=== PATIENT | male | born 1950 | race Caucasian/White ===

== ENCOUNTER 2017-10-12 20:23 | Emergency (ER) | payer MEDICARE | END 2017-10-12 21:15 | disposition home or self-care (01) | LOC: ER 20:23 | DX: M54.5 Low back pain (principal); I10 Essential (primary) hypertension | CPT/HCPCS: 99283 ==

== ENCOUNTER 2018-11-27 09:03 | Emergency (ER) | payer MEDICARE ==
[~2018-11-27] VITALS: Ht 182.9 cm; Wt 87.1 kg
[~2018-11-27 09:03] MED LIST: OXYC5CAP PO
[2018-11-27] MEDS ORDERED: LIDOCAINE 1% PF 2 ML VIAL. INJ ONE (09:15)
[2018-11-27 09:16] VITALS: BP 141/81
--- NOTE | 2018-11-27 09:17 | PHYS DOC ---
Past Medical History Past Medical History: Hypertension Past Surgical History: Other Additional Past Surgical Histo: R AND L KNEE, R AND L ROTATOR, L CARPAL TUNNEL Alcohol Use: Occasionally Drug Use: None Adult General Chief Complaint Chief Complaint: LACERATION/AVULSION HPI HPI Patient is a 68 year old male who presents with was using a pocket knife to open a bag and ended up cutting his left dorsum whole hand in 2 [address] places at approximately 905 this morning. Bleeding is not controlled. Patient rates his stinging pain a 6 out of 10. Review of Systems Review of Systems Constitutional: Denies fever or chills [] Eyes: Denies change in visual acuity, redness, or eye pain [] HENT: Denies nasal congestion or sore throat [] Respiratory: Denies cough or shortness of breath [] Cardiovascular: No additional information not addressed in HPI [] GI: Denies abdominal pain, nausea, vomiting, bloody stools or diarrhea [] : Denies dysuria or hematuria [] Musculoskeletal: Denies back pain or joint pain [] Integument: Denies rash or skin lesions [] Neurologic: Denies headache, focal weakness or sensory changes [] Endocrine: Denies polyuria or polydipsia [] All other systems were reviewed and found to be within normal limits, except as documented in this note. Current Medications Current Medications Current Medications Medications (Trade) Dose Ordered Sig/Yanira Start Time Stop Time Status Last Admin Dose Admin Diphtheria/ Tetanus/Acell Pertussis (Boostrix) 0.5 ml ONCE ONCE 11/27/18 09:30 11/27/18 09:31 DC Lidocaine HCl (Lidocaine 1% 20ml Vial) 20 ml STK-MED ONCE 11/27/18 09:39 11/27/18 09:40 DC Lidocaine HCl (Xylocaine-Mpf 1% 2ml Vial) 2 ml 1X ONCE 11/27/18 09:15 11/27/18 09:16 Cancel Allergies Allergies Allergies Coded Allergies Type Severity Reaction Last Updated Verified No Known Drug Allergies 10/12/17 No Physical Exam Physical Exam Constitutional: Well developed, well nourished, no acute distress, non-toxic appearance. [] HENT: Normocephalic, atraumatic, bilateral external ears normal, oropharynx moist, no oral exudates, nose normal. [] Eyes: PERRLA, EOMI, conjunctiva normal, no discharge. [] Neck: Normal range of motion, no tenderness, supple, no stridor. [] Cardiovascular:Heart rate regular rhythm, no murmur [] Lungs & Thorax: Bilateral breath sounds clear to auscultation [] Abdomen: Bowel sounds normal, soft, no tenderness, no masses, no pulsatile masses. [] Skin: Warm, dry, no erythema, no rash. [] Back: No tenderness, no CVA tenderness. [] Extremities: No tenderness, no cyanosis, no clubbing, ROM intact, no edema. [] Neurologic: Alert and oriented X 3, normal motor function, normal sensory function, no focal deficits noted. [] Psychologic: Affect normal, judgement normal, mood normal. [] Current Patient Data Vital Signs Vital Signs Date Time Temp Pulse Resp B/P (MAP) Pulse Ox O2 Delivery O2 Flow Rate FiO2 11/27/18 09:16 97.8 94 20 141/81 (101) 96 Room Air 97.8 EKG EKG [] Radiology/Procedures Radiology/Procedures [] Course & Med Decision Making Course & Med Decision Making Patient is a 68 year old male who presents with was using a pocket knife to open a bag and ended up cutting his left dorsum whole hand in 2 separate places at approximately 905 this morning. Bleeding is not controlled. Patient rates his stinging pain a 6 out of 10. Patient has a left dorsal 3 cm laceration that has continuous non arterial bleeding that is just distal to the Perlicue and a second 2 cm laceration to the mid left dorsal hand with no bleeding. Patient can make a fist and wiggle all fingers without complication. Radial pulse strong and palpable. Cap refill less than 3 seconds. Patient denies any numbness or tingling in the hand or the arm. Wound is immediately packed and wrapped tightly to control bleeding upon arrival. Patient is given a Boostrix tetanus shot. Bleeding has stopped after pressure placed in ED for 20 minutes. No underlying muscle or tendons seen with exploration or damage. Less than 0.5mm of depth. Does not appear to be a stab type wound after examing the wound and irrigation. Patient to return in 7-10 days for suture removal. Laceration Repair by me: Anesthesia: 1% lidocaine locally Location: Left dorsal hand Tendon/Joint/Nerves: No injury Foreign body: None detected after copious irrigation with saline and chlorhexidine and exploration Technique: 6 Simple Interrupted Sutures and 3 simple sutures. Complexity: No subcutaneous sutures/mucosal repair/edge excision Post Closure Length: Left distal Perlicue laceration 3.5 cm and Left mid dorsal 2cm Patient's bleeding was easily controlled in the department and there is no indication of anemia. No evidence of compartment syndrome, neurologic injury, vascular injury, open joint, tendon laceration, or foreign body. Patient is appropriate for outpatient follow up. 48 hour wound check. Scar minimization instructions given. Dragon Disclaimer Dragon Disclaimer This electronic medical record was generated, in whole or in part, using a voice recognition dictation system. Departure Departure Impression: Primary Impression: Laceration Disposition: 01 HOME, SELF-CARE Condition: STABLE Referrals: BRAN OWENS MD (PCP) Patient Instructions: Laceration Care, Adult Additional Instructions: Return in 7-10 days for suture removal. Watch for signs of infections as we discussed. The area clean and covered. Use ibuprofen for pain. JAVED SANCHEZ APRN Nov 27, 2018 09:17
[2018-11-27] MEDS ORDERED: DIPHTH,PERTUSS(ACELL),TET TOX 0.5 ML DISP.SYRIN. VAX IM ONE (09:30)
[2018-11-27] MEDS ORDERED: LIDOCAINE 1% Multi-Dose 20 ML VIAL. ONE (09:39)
[2018-11-27] MEDS ORDERED: LIDOCAINE 1% Multi-Dose 20 ML VIAL. INJ ONE (09:45)
--- NOTE | 2018-11-27 10:38 | NUR ---
Non-adherent dressing and sterile 4x4's covered with Koban/self-adherent dressing. Blood on hand cleaned up with moist wipes.
== END 2018-11-27 10:38 | disposition home or self-care (01) ==
LOC: ER 09:03
DX: S61.412A Laceration without foreign body of left hand, initial encounter (principal); I10 Essential (primary) hypertension; W26.0XXA Contact with knife, initial encounter; Y93.89 Activity, other specified; Y92.89 Other specified places as the place of occurrence of the external cause; Y99.8 Other external cause status
CPT/HCPCS: 12002; 90471; 90715; 99284

== ENCOUNTER → 2021-04-30 | Outpatient (CLI) | payer MEDICARE, OTHER ==
--- NOTE | 2021-04-30 09:05 | KCIC ---
PQRS Compliance Statement: One or more of the following individualized dose reduction techniques were utilized for this examinat ion: 1. Automated exposure control 2. Adjustment of the mA and/or kV according to patient size 3. Use of iterative reconstruction technique CT SCREENING FOR CORONARY ARTERY 04/30/2021 8:10 AM Indication: Mixed hyperlipidemia COMPARISON: None available. TECHNIQUE: Limited diagnostic axial CT images of the chest were obtained for evaluation of the cardia c structures. Interpretation of the noncardiac structures is provided by the diagnostic radiologist. FINDINGS: Visualized portions of the mediastinum appear normal. No pathologically enlarged thoracic lymph nodes . Ascending thoracic aorta is normal in caliber. There is a 6 mm solid noncalcified pulmonary nodule at the left costophrenic angle (series 5, image 3 3). Bronchial wall thickening compatible with nonspecific bronchitis. There are no pleural effusions. No focal airspace consolidation. Small hiatal hernia. No suspicious osseous abnormality is identified. IMPRESSION: 1. Nonspecific bronchitis. 6 numerous solid noncalcified pulmonary nodule identified in the left lowe r lobe. Fleischner guidelines for incidentally detected pulmonary nodules suggests CT chest at 6-12 m onths, then consider CT at 18-24 months for single solid noncalcified pulmonary nodule 6-8 mm in size . 2. Small hiatal hernia. 3. Please refer to the separate cardiology report for further details regarding the cardiac structure s. Electronically signed by: Maxine Anthony MD (04/30/2021 9:02 AM) [facility]
== END ==
LOC: KCIC CT 08:03
PROVIDERS: ATTEND Family Medicine
DX: K44.9 Diaphragmatic hernia without obstruction or gangrene (principal); R91.1 Solitary pulmonary nodule; J98.09 Other diseases of bronchus, not elsewhere classified; E78.2 Mixed hyperlipidemia; Z82.49 Family history of ischemic heart disease and other diseases of the circulatory system; Z72.0 Tobacco use
CPT/HCPCS: 75571